=== PATIENT | female | born 1935 | race African-American/Black ===

== ENCOUNTER → 2016-11-08 | Day surgery (SDC) | payer MEDICARE ==
[~2016-11-08] MED LIST: AMLO10TA2 PO; ASPI-39 PO; FURO20TA3 PO; HYDR25TA9 PO; INSU100I13 SQ; INSU100I17 SQ; INSU100V12 SQ; INSU100V13 SQ; INSU100V8 SQ; IV RINGERS,LACTATED 1000ML 1,000 ML IV SCH; LIDOCAINE 2% PF Vial for OR 5 ML VIAL. ONE; LISI40TA PO; METO100T11 PO; METO25TA9 PO; PANT40TA3 PO; POTA10TA12 PO; PRAV20TA2 PO; PROPOFOL 20 ML IV ONE; SUCR1TAB29 PO
--- NOTE | 2016-11-08 09:45 | PDOC1 ---
HISTORY & PHYSICAL H&P Scarlett Coffey [id number] 1935 10/25/2016 02:50 PM 06/26 [employer] [facility]IENTS [facility] [address] [place] [id number] Ph. [phone] Patient: Scarlett Coffey Date of : 1935 Date: 10/25/2016 2:50 PM Historian: daughter Visit Type: Office Visit This 81 year old female presents for Gastric ulcer's. History of Present Illness: 1. Gastric ulcer's Patient is here for follow up for gastric ulcer. Has been having some issue with JOCELYN and some unusual sensation in the throat. No true dysphagia. No other complain. Has some me upper abdominal discomfort. INTAKE COMMENTS: Intake Comments: Nurses Notes: Pt is here today with complaints of discomfort in her throat pt states some times she has felt as if there is something stuck in her throat and unable to get it out. Pt goes on to say she has felt this for over a month, Pt denies any pain at this time. 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 Gastric ulcer 12/16/2014 Diabetes type 2, uncontrolled 05/26/2015 Encounter for Medicare annual wellness exam 03/01/2016 Sciatica 04/21/2015 Allergic rhinitis 07/09/2009 Disorder of bone and articular cartilage 07/09/2009 Hyperlipidemia 07/09/2009 Anemia 07/09/2009 Gastroesophageal reflux disease 07/09/2009 Benign essential hypertension 07/09/2009 Hypercalcemia 07/09/2009 Acute gastric ulcer 07/08/2015 PAST MEDICAL/SURGICAL HISTORY (Detailed) Disease/disorder Onset Date Management Date Comments Hysterectomy Cholecystectomy Appendectomy Bi-Lat Knee Surgery Anemia Colonic polyps 10/30/2012 colonoscopy 10/30/2012 Diabetes Diverticu Diverticulum 10/30/2012 GERD Hypercalcemia Hyperlipidemia Hypertension Internal hemorrhoids 10/30/2012 Osteoarthritis DIAGNOSTICS HISTORY: Test Ordered Interpretation Result completed Colonoscopy 02/03/2009 abnormal Polyps removed, Bx pending Tubular adenoma and hyperplastic polyp 02/03/2009 DM Eye exam 07/10/2008 no retinopathy 07/10/2008 Thyroid Uptake Scan 01/01/2009 Normal Normal 01/01/2009 Mammogram 05/01/2009 Normal 05/01/2009 Ultrasound Thyroid 12/22/2008 Multinodular Goiter 12/22/2008 DEXA scan 01/02/2008 Osteopenia 01/02/2008 Scan MRI 08/18/2004 Lt knee/medial meniscal tear, degen arthrosis involving medial joint compartment 08/18/2004 COLONOSCOPY AND BIOPSY 10/22/2012 Imp: Polyps x 2, (bx x 2). Diverticulum in the ascending colon. Grade 1 Internal hemorrhoids. 10/30/2012 EGD 12/31/2014 abnormal Imp: Possible inflammatory polyp at the site of large antral ulcer in the pyloric channel. BX: hyperplastic polyp, showing erosion and acute and chronic inflammation. 03/23/2015 Test Ordered Ordering Comments Modifier Colonoscopy 02/03/2009 Pt received verbal and written instructions.[facility] DM Eye exam 07/10/2008 Other Reports Thyroid Uptake Scan 01/01/2009 Diagnostic Images Mammogram 05/01/2009 Diagnostic Images Ultrasound Thyroid 12/22/2008 Diagnostic Images DEXA scan 01/02/2008 Diagnostic Images Scan MRI 08/18/2004 Diagnostic Images COLONOSCOPY AND BIOPSY 10/22/2012 EGD 12/31/2014 Not currently . Medications (Active): Started Medication Directions Instruction Stopped 08/27/2013 ACCU-CHEK FASTCLIX LANCETS CHECK BLOOD SUGAR FOUR TIMES A DAY. 12/04/2012 Accu-Chek Grazyna check blood sugars 3 times daily before meals 06/14/2016 Accu-Chek SmartView Test Strips TEST BLOOD SUGAR THREE TIMES A DAY. DX:E 11.65 10/04/2016 amlodipine 5 mg tablet take 1 tablet by oral route every day 06/14/2016 BD Insulin Pen Needle UF Mini 31 gauge x 3/16" use one per injection, total of 5 per day dx:E11.65 07/25/2016 FUROSEMIDE 40 MG TABLET TAKE 1 TABLET BY MOUTH EVERY DAY 07/26/2016 Lantus Solostar 100 unit/mL (3 mL) subcutaneous insulin pen inject Lantus 40unit before breakfast/supper. 06/14/2016 lisinopril 40 mg tablet TAKE 1 TABLET BY MOUTH EVERY DAY 09/05/2016 METOPROLOL SUCC ER 50 MG TAB TAKE 1 TABLET BY MOUTH EVERY DAY *TAKE WITH 100MG* 07/26/2016 metoprolol succinate ER 200 mg tablet,extended release 24 hr take 1 tablet by oral route every day THIS IS CORRECT PT WILL PICK/UP 10/04/2016 Novolog Flexpen 100 unit/mL subcutaneous 20 units sub q before breakfst and supper. If BS>200 take 15units at 2pm. 07/26/2016 omeprazole 20 mg capsule,delayed release take 1 capsule by oral route every day before a meal 10/10/2016 POTASSIUM CL ER 20 MEQ TABLET TAKE 1 TABLET BY MOUTH EVERY DAY WITH FOOD 06/14/2016 pravastatin 20 mg tablet TAKE 1 TABLET BY MOUTH EVERY DAY 07/26/2016 Zyrtec 10 mg tablet take 1 tablet by ORAL route every day at bedtime Allergies: Ingredient Reaction Medication Name Comment NO KNOWN ALLERGIES REVIEW OF SYSTEMS System Neg/Pos Details Constitutional Negative Chills, fever, malaise and weight loss. ENMT Negative Sore throat. Eyes Negative Double vision. Respiratory Negative Dyspnea and wheezing. Cardio Negative Chest pain and irregular heartbeat/palpitations. GI Positive See HPI. GI Negative See HPI. Negative Dysuria and hematuria. Endocrine Negative Cold intolerance and heat intolerance. Psych Negative Anxiety. Integumentary Negative Hives and rash. MS Negative Joint pain. Stewart/Lymph Negative Easy bleeding and easy bruising. Allergic/Immuno Negative Food allergies. VITAL SIGNS Time BP mm/Hg Pulse /min Resp /min Temp F Ht ft Ht in Ht cm Wt lb Wt kg BMI kg/ m2 BSA m2 O2 Sat% 2:34 PM 132/68 86 16 98.0 5.0 1.00 154.94 163.60 74.208 30.91 98 Time Measured by 2:34 PM More Alonzo PHYSICAL EXAM: Exam Findings Details Constitutional Normal Well developed. Eyes Normal Conjunctiva - Right: Normal, Left: Normal. Sclera - Right: Normal, Left: Normal. Nasopharynx Normal Lips/teeth/gums - Normal. Neck Exam Normal Inspection - Normal. Thyroid gland - Normal. Respiratory Normal Inspection - Normal. Auscultation - Normal. Cardiovascular Normal Regular rate and rhythm. No murmurs, gallops, or rubs. Vascular Normal Pulses - Carotids: Normal, Femoral: Normal, Dorsalis pedis: Normal. Abdomen Normal Inspection - Normal. Anterior palpation - No guarding. No abdominal tenderness. No hepatic enlargement. No splenic enlargement. No hernia. No Ascites. Skin Normal Inspection - Normal. Extremity Normal No edema. Psychiatric Normal Oriented to time, place, person, and situation. Appropriate mood and effect. The patient was checked out at 3:06 PM by Annamaria Kenia. Assessment/Plan # Detail Type Description 1. Assessment Chronic gastric ulcer without hemorrhage and without perforation (K25.7). Patient Plan schedule EGD. Plan Orders Further diagnostic evaluations ordered today include(s) EGD to be performed today. She is to schedule a follow-up visit with Obinna Hunt MD upon completion of work-up Electronically signed by: Obinna Hunt MD 10/25/2016 06:43 PM Document generated by: Obinna Hunt 10/25/2016 06:43 PM Shruthi Najera MD, Family Practice; Reddy Lipscomb MD Internal Medicine; Adam Ross MD, Internal Medicine; Fernando Hunt MD Internal Medicine; Obinna Hunt MD, Gastroenterology; Alex Lan MD, Rheumatology, S. Abimael Arthur, Physical Medicine/Rehab J. Samm CANAS ------ 11/08/16 Patient seen and examined. No change in H&P. OBINNA HUNT MD November 08, 2016 09:44
--- NOTE | 2016-11-08 10:08 | PDOC4 ---
GI OP Report - Dr. Mercer Date/Time DATE: 11/08/16 TIME: 10:07 Attending Physician Bang Mercer MD Referring Physician Indications Follow-up of chronic gastric ulcer with hemorrhage Pre-Op See the Anesthesia note for documentation of the administered medications Procedures Upper GI endoscopy Findings - LA Grade A reflux esophagitis. - Nodular mucosa in the gastric antrum. Biopsied. - Normal examined duodenum. Plan - Discharge patient to home. - Patient has a contact number available for emergencies. The signs and symptoms of potential delayed complications were discussed with the patient. Return to normal activities tomorrow. Written discharge instructions were provided to the patient. - Resume regular diet. - Continue present medications. - Await pathology results. - Return to my office in 2 weeks. BANG MERCER MD November 08, 2016 10:08
[2016-11-08 10:27] VITALS: BP 173/70
--- NOTE | 2016-11-10 13:27 | PATHOLOGY ---
PATHOLOGY REPORT * * * * * * * * FINAL DIAGNOSIS: Gastric biopsies, healed gastric ulcer: - Reactive gastropathy with mild chronic inflammation. COMMENT: Sections of the gastric biopsy reveal segments of gastric antral mucosa showing congestion, focal foveolar hyperplasia and mild chronic inflammation. An immunoperoxidase stain for Helicobacter is obtained. No Helicobacter organisms are identified. There is no evidence of malignancy. (JPM:csd; d/t: 11/10/2016) Immunoperoxidase stains: Helicobacter pylori REPORT ELECTRONICALLY SIGNED BY: Morris Holt M.D. DATE/TIME: 11/10/2016 13:27 * * * * * * * * GROSS PATHOLOGY: Received in formalin labeled "[facility], BX of healed gastric ulcer," are 2 segments of castañeda soft tissue measuring 0.9 x 0.2 x 0.2 cm in aggregate dimensions and ranging from 0.4 to 0.5 cm in maximum dimension. The specimen is submitted entirely in cassette A1. (RADHA; 11/09/2016) INITIAL CPT CODE(S): A; 15221, 64953 Professional services performed by [facility] [address] Technical services performed by [facility] at [address] [place] [address]. SPECIMEN(S) RECEIVED: A.Biopsy of healed gastric ulcer CLINICAL HISTORY: History of gastric ulcer PATIENT: SINAI MERIDA /AGE: 3 1935 (Age: 81) PATIENT #: [id number] ALT CASE #: SPECIMEN COLLECTION DATE: 11/08/2016 SPECIMEN RECEIVED DATE: 11/08/2016 [facility] - [address] [place] [address] - PHONE: [phone] * * * END OF REPORT * * *
== END | disposition home or self-care (01) ==
LOC: ENDOS 07:52
PROVIDERS: ATTEND Internal Medicine Gastroenterology
DX: K21.0 Gastro-esophageal reflux disease with esophagitis (principal); K25.4 Chronic or unspecified gastric ulcer with hemorrhage; K31.9 Disease of stomach and duodenum, unspecified; E78.00 Pure hypercholesterolemia, unspecified; I10 Essential (primary) hypertension; E11.9 Type 2 diabetes mellitus without complications; Z90.49 Acquired absence of other specified parts of digestive tract; Z86.39 Personal history of other endocrine, nutritional and metabolic disease; Z87.442 Personal history of urinary calculi
CPT/HCPCS: 43239; 88305; 88342; J2704; G0641

== ENCOUNTER → 2017-10-10 | Outpatient (CLI) | payer MEDICARE | END | disposition home or self-care (01) | LOC: RAD 14:57 | DX: M17.0 Bilateral primary osteoarthritis of knee (principal); M85.80 Other specified disorders of bone density and structure, unspecified site | CPT/HCPCS: 73140; 73565 ==

== ENCOUNTER → 2020-07-01 | Outpatient (CLI) | payer MEDICARE ==
[2017-09-05 11:41] VITALS: BP 159/49
[~2020-07-01] MED LIST changes: +AMLO-187 PO; -AMLO10TA2 PO; +CEPH-264 PO; +COLE1TAB2 PO; +GABA300C18 PO; +HYDR-2145 PO; +HYDR12.58 PO; -HYDR25TA9 PO; -IV RINGERS,LACTATED 1000ML 1,000 ML IV SCH; -LIDOCAINE 2% PF Vial for OR 5 ML VIAL. ONE; +LISI-130 PO; -LISI40TA PO; +METO-239 PO; +METO-247 PO; -METO100T11 PO; -METO25TA9 PO; -PANT40TA3 PO; +PANT40TA77 PO; -POTA10TA12 PO; +POTASSIUM CHLO10 ME1 PO; -PROPOFOL 20 ML IV ONE; -SUCR1TAB29 PO; +SUCR1TAB35 PO
--- NOTE | 2020-07-01 17:24 | KCIC ---
MRI of the brain without contrast 07/01/2020 Clinical History: Tremors. Technique: Unenhanced T1-weighted sagittal and axial, T2-weighted axial and coronal and FLAIR, gradie nt echo and diffusion-weighted axial images of the brain were obtained. Findings: Comparison study is dated 02/27/2014. There is generalized parenchymal atrophy. Patchy, confluent and multiple small focal areas of increas ed signal intensity are seen within the periventricular and subcortical white matter of both cerebral hemispheres along with the carrol on the FLAIR and T2-weighted images consistent with areas of small v essel ischemic disease. These have not significantly changed. An area of encephalomalacia is seen inv olving the anterior inferior left temporal lobe. No acute parenchymal abnormality is seen. No extra-axial fluid collection is seen. There is no MRI ev idence of acute ischemia/infarction. Mild mucosal thickening is seen scattered throughout the ethmoid air cells bilaterally. Normal flow v oids are seen within the major vascular structures surrounding the brain parenchyma. Impression: No acute parenchymal abnormality is seen. Electronically signed by: Mata Curiel MD (07/01/2020 5:21 PM) [id number]
== END ==
LOC: KCIC MRI 13:12
PROVIDERS: ATTEND Nurse Practitioner Family
DX: G93.89 Other specified disorders of brain (principal); G31.89 Other specified degenerative diseases of nervous system; J34.89 Other specified disorders of nose and nasal sinuses; Z86.69 Personal history of other diseases of the nervous system and sense organs
CPT/HCPCS: 70551

== ENCOUNTER 2020-12-30 07:58 | Emergency (ER) | payer MEDICARE ==
[~2020-12-30] VITALS: Ht 160 cm; Wt 65.1 kg
[2020-12-30 08:08] VITALS: BP 197/84
--- NOTE | 2020-12-30 08:15 | ED.ADGEN ---
Past Medical History Past Medical History: Diabetes-Type II, High Cholesterol, Hypertension Past Surgical History: Knee Replacement, Other Additional Past Surgical Histo: bilat knee repl Smoking Status: Never Smoker Alcohol Use: None Drug Use: None General Adult HPI: HPI: Patient is a 85-year-old female who arrives ambulatory to the emergency department complaining of left-sided low back pain which is been ongoing now for 4 days. Patient describes pain of her low back which has radiated down into her left hip, left thigh and leg. Patient has been evaluated by her primary care physician who is requested imaging with respect to this phenomenon. Patient states despite having this pain, she has no history of injury or fever. Additionally she has no abdominal pain or changes to her bowel/bladder habits. She further denies any saddle anesthesia Review of Systems: Review of Systems: Constitutional: Denies fever or chills. [] Eyes: Denies change in visual acuity. [] HENT: Denies nasal congestion or sore throat. [] Respiratory: Denies cough or shortness of breath. [] Cardiovascular: Denies chest pain or edema. [] GI: Denies abdominal pain, nausea, vomiting, bloody stools or diarrhea. [] : Denies dysuria. [] Musculoskeletal: Reports low back pain and extremity pain. [] Integument: Denies rash. [] Neurologic: Denies headache, focal weakness or sensory changes. [] Endocrine: Denies polyuria or polydipsia. [] Lymphatic: Denies swollen glands. [] Psychiatric: Denies depression or anxiety. [] Allergies: Allergies: Allergies Coded Allergies Type Severity Reaction Last Updated Verified No Known Drug Allergies 11/08/16 No Physical Exam: PE: Constitutional: Well developed, well nourished, no acute distress, non-toxic appearance. [] HENT: Normocephalic, atraumatic, bilateral external ears normal, oropharynx moist, no oral exudates, nose normal. [] Eyes: PERRLA, EOMI, conjunctiva normal, no discharge. [] Neck: Normal range of motion, no tenderness, supple, no stridor. [] Cardiovascular:Heart rate regular rhythm, no murmur [] Lungs & Thorax: Bilateral breath sounds clear to auscultation [] Abdomen: Bowel sounds normal, soft, no tenderness, no masses, no pulsatile masses. [] Skin: Warm, dry, no erythema, no rash. [] Back: Minimal tenderness in the paraspinal lumbar musculature. No CVA tenderness. [] Extremities: No tenderness, no cyanosis, no clubbing, ROM intact, no edema. [] Neurologic: Alert and oriented X 3, normal motor function, normal sensory function, no focal deficits noted. [] Psychologic: Affect normal, judgement normal, mood normal. [] Current Patient Data: Vital Signs: Vital Signs Date Time Temp Pulse Resp B/P (MAP) Pulse Ox O2 Delivery O2 Flow Rate FiO2 12/30/20 08:08 98.1 96 20 197/84 (85) 99 Room Air 98.1 EKG: EKG: [] Heart Score: C/O Chest Pain: N/A Risk Factors: Risk Factors: DM, Current or recent (<one month) smoker, HTN, HLP, family history of CAD, obesity. Risk Scores: Score 0 - 3: 2.5% MACE over next 6 weeks - Discharge Home Score 4 - 6: 20.3% MACE over next 6 weeks - Admit for Clinical Observation Score 7 - 10: 72.7% MACE over next 6 weeks - Early Invasive Strategies Radiology/Procedures: Radiology/Procedures: [] Impression: [facility] [address] [place] [address] IMAGING REPORT Signed PATIENT: SINAI MERIDA ACCOUNT: [id number] : 1935 LOCATION: ER AGE: 85 SEX: F EXAM STATUS: REG ER ORD. PHYSICIAN: HAMILTON HDEZ DO REASON: pain, right side ,no injury PROCEDURE: LUMBAR SPINE 2-3V Lumbar spine 3 views. HISTORY: Right-sided pain 3 views were taken of the lumbar spine. Lumbar spine is in normal alignment. Disc spaces are normal in height. There are hypertrophic changes on the vertebral bodies. There is no acute fracture. Bowel pattern of the abdomen is unremarkable. IMPRESSION: 1. Hypertrophic changes in the lumbar spine. 2. No acute fracture. Electronically signed by: Dario Ovalles MD (12/30/2020 8:51 AM) [id number] DICTATED and SIGNED BY: DARIO OVALLES MD DATE: 12/30/20 [id number] 0 Course & Med Decision Making: Course & Med Decision Making Pertinent Labs and Imaging studies reviewed. (See chart for details) [] The patient does have evidence of facet hypertrophy on plain film. Given this and her symptoms, I advised that she take a short steroid regimen which I prescribed. Should she not experience any improvement from this have advised that she consider follow-up with her primary care physician for referral to pain management. Should the patient develop any saddle anesthesia or change in her bladder/bowel habits, I advised she return to the emergency department im mediately. The patient understands and has agreed to do so. She is nontoxic- appearing neurological intact. She stable for discharge. Dragon Disclaimer: Dragon Disclaimer: This electronic medical record was generated, in whole or in part, using a voice recognition dictation system. Departure Departure Impression: Primary Impression: Lumbar back pain with radiculopathy affecting left lower extremity Disposition: 01 HOME / SELF CARE / HOMELESS Condition: STABLE Referrals: CHRISTOPHE MERCER MD (PCP) Patient Instructions: Sciatica Scripts Cyclobenzaprine Hcl (CYCLOBENZAPRINE HCL) 5 Mg Tablet 1 TAB PO BID for 7 Days, #14 TAB Prov: HAMILTON HDEZ DO 12/30/20 Methylprednisolone (MEDROL) 4 Mg Tab.ds.pk 1 PKG PO UD for inflammation, #1 PKG Prov: HAMILTON HDEZ DO 12/30/20 HAMILTON HDEZ DO Dec 30, 2020 08:15
--- NOTE | 2020-12-30 08:54 | RAD ---
Lumbar spine 3 views. HISTORY: Right-sided pain 3 views were taken of the lumbar spine. Lumbar spine is in normal alignment. Disc spaces are normal i n height. There are hypertrophic changes on the vertebral bodies. There is no acute fracture. Bowel p attern of the abdomen is unremarkable. IMPRESSION: 1. Hypertrophic changes in the lumbar spine. 2. No acute fracture. Electronically signed by: Dario Ovalles MD (12/30/2020 8:51 AM) [id number]
[2020-12-30] MEDS ORDERED: METH4TAB2 PO (09:05)
[2020-12-30] MEDS ORDERED: CYCL5TAB PO (09:05)
[2020-12-30] MEDS ORDERED: HYDROcodone/APAP 5/325MG 1 TAB TABLET PO ONE (09:45)
== END 2020-12-30 09:55 | disposition home or self-care (01) ==
LOC: ER 07:58
DX: M54.16 Radiculopathy, lumbar region (principal); M25.552 Pain in left hip; M79.652 Pain in left thigh; E11.9 Type 2 diabetes mellitus without complications; E78.00 Pure hypercholesterolemia, unspecified; I10 Essential (primary) hypertension
CPT/HCPCS: 72100; 99283

== ENCOUNTER → 2021-01-01 | Outpatient (CLI) | payer MEDICARE ==
[2020-12-30 08:08] VITALS: BP 197/84
[~2021-01-01] MED LIST changes: +CYCL5TAB PO; +METH4TAB2 PO
--- NOTE | 2021-01-01 17:47 | RAD ---
EXAMINATION: US RENAL BILAT, US EXT NON VASC LEFT INDICATION: 85 years, Female, right lumbar paraspinal pain. Left flank pain. COMPARISON: None TECHNIQUE: Grayscale and limited color Doppler evaluation of the kidneys and bladder was performed. L imited real-time sonographic evaluation of the area of clinical concern in the left lower back soft t issue, supplemented by color Doppler. FINDINGS: ULTRASOUND RENAL: RIGHT KIDNEY: MEASURES: 9.6 x 3.9 x 5.0 cm. MORPHOLOGY/PARENCHYMA: Normal corticomedullary differentiation with no shadowing calculus. There is a 2.7 x 2.5 cm simple appearing cyst in the lateral cortex of the upper pole. COLLECTING SYSTEM: No hydronephrosis. LEFT KIDNEY: MEASURES: 10.8 x 3.8 x 5.2 cm. MORPHOLOGY/PARENCHYMA: Normal corticomedullary differentiation with no shadowing calculus or discrete masses. COLLECTING SYSTEM: No hydronephrosis. URINARY BLADDER: Unremarkable. ULTRASOUND NONVASCULAR LEFT Interrogation area of clinical concern in the left lower back (area of pain) demonstrates no focal ma sses, fluid collection or hyperemia IMPRESSION: 1. No hydronephrosis or shadowing calculi in either kidney. 2. Simple 2.7 cm right renal cyst. 3. Interrogation area of clinical concern in the left lower back (area of pain), demonstrates no foca l masses, fluid collection or hyperemia. Electronically signed by: Michael Nguyen MD (01/01/2021 5:44 PM) [id number]
== END ==
LOC: US 15:41
PROVIDERS: ATTEND Internal Medicine
DX: N28.1 Cyst of kidney, acquired (principal); M54.5 Low back pain
CPT/HCPCS: 76770; 76881